=== PATIENT | male | born 1985 | race Caucasian/White ===

== ENCOUNTER 2025-01-19 14:51 | Emergency (ER) | payer BC, MEDICARE ==
[~2025-01-19] VITALS: Ht 177.8 cm; Wt 86.0 kg
[2025-01-19] MEDS ORDERED: TIZANIDINE HCL4 M1 PO (15:08)
[2025-01-19] MEDS ORDERED: BUSPIRONE HCL10 MG PO (15:08)
[2025-01-19] MEDS ORDERED: SUBOXONE 8 MG-1 EAC1 SL (15:09)
[2025-01-19] MEDS ORDERED: HYDROXYZINE PAM25 MG PO (15:10)
[2025-01-19] MEDS ORDERED: GABAPENTIN300 MG PO (15:11)
[2025-01-19 15:55] LABS: BLOOD/HGB, URINE NEGATIVE (Negative); KETONE, URINE SMALL (Negative); LEUK ESTERASE, URINE NEGATIVE (negative); NITRITE, URINE NEGATIVE (negative)
[2025-01-19 16:09] LABS: CRYSTALS, URINE AMORPHOUS URATES 3+ (0-1+); EPITHELIAL CELLS, URINE 0 /lpf (0-1+)
[2025-01-19 16:10] LABS: BACTERIA, URINE RARE /hpf (negative); CASTS, URINE NONE SEEN \\lpf; REFLEX CULTURE, URINE No (No)
[2025-01-19] MEDS ORDERED: SODIUM CHLORIDE 0.9% 1,000 ML IV ONE (16:30)
[2025-01-19 16:45] LABS: BASOPHILS 0.4 % (0.2-1.2); EOSINOPHILS 0.2 % (0.8-7.0); LYMPHOCYTES 14.5 % (21.8-53.1); MCH 27.5 PG (25.7-32.2); MCHC 34.7 g/dL (32.3-36.5); MCV 79.3 fL (79.0-92.2); MONOCYTES 7.5 % (5.3-12.2); NEUTROPHILS 77.2 % (34.0-67.9); RBC 5.35 M/uL (4.63-6.08)
[2025-01-19 17:03] LABS: ALT (SGPT) 28.0 U/L (14-59); AST (SGOT) 22.0 U/L (15-37); GLOMERULAR FILTRATION RATE,EST 85.0 mL/min (>60); PROTEIN, TOTAL 8.5 g/dL (6.4-8.2); UREA NITROGEN 19.0 mg/dL (7-18)
[2025-01-19] MEDS ORDERED: ONDANSETRON ODT8 MG PO (18:25)
[2025-01-19 18:51] VITALS: BP 126/82
== END 2025-01-19 18:49 | disposition home or self-care (01) ==
LOC: ED 14:51
PROVIDERS: Emergency Medicine
DX: R10.10 Upper abdominal pain, unspecified (principal); I10 Essential (primary) hypertension; Z79.899 Other long term (current) drug therapy
CPT/HCPCS: 36415; 80053; 81001; 82550; 83605; 85025; 96374; 99284-25; J2405; J7030